=== PATIENT | male | born 1960 | race Caucasian/White ===

== ENCOUNTER 2018-01-15 09:55 | Day surgery (SDC) | payer OTHER ==
[~2018-01-15] VITALS: Ht 177.8 cm; Wt 77.1 kg
[2018-01-15] MEDS ORDERED: ONDANSETRON HCL 4 MG/2 ML VIAL IVP PRN (11:30)
[2018-01-15] MEDS ORDERED: fentaNYL CITRATE/PF 100 MCG/2 ML AMP IVP PRN ×2 (11:30)
[2018-01-15] MEDS ORDERED: LIDOCAINE/EPI 1% 1:100000 20 ML VIAL INJ ONE ×2 (12:33→13:55)
[2018-01-15] MEDS ORDERED: EPINEPHrine 1 MG/ML AMP INFIL ONE (12:33)
[2018-01-15] MEDS ORDERED: OXYMETAZOLINE HCL 0.05% NASAL SPRAY NS ONE ×2 (12:33→13:55)
[2018-01-15] MEDS ORDERED: ONDANSETRON HCL 4 MG/2 ML VIAL IVP ONE (13:55)
[2018-01-15] MEDS ORDERED: LR 1,000 ML IV.SOLN IV ONE (13:55)
[2018-01-15] MEDS ORDERED: NS 1000 ML IV.SOLN IV ONE (13:55)
[2018-01-15] MEDS ORDERED: GLYCOPYRROLATE 0.2 MG/ML VIAL IJ ONE (13:55)
[2018-01-15] MEDS ORDERED: SEVOFLURANE 15 MIN GAS INH ONE (13:55)
[2018-01-15] MEDS ORDERED: MIDAZOLAM HCL 5 MG/5 ML VIAL IVP ONE (13:55)
[2018-01-15] MEDS ORDERED: NEOSTIGMINE METHYLSULFATE 1 MG/ML, 10 ML VIAL IVP ONE (13:55)
[2018-01-15] MEDS ORDERED: fentaNYL CITRATE/PF 100 MCG/2 ML AMP IVP ONE (13:55)
[2018-01-15] MEDS ORDERED: PROPOFOL 200MG/ 20ML VIAL (DIPRIVAN) IV ONE (13:55)
[2018-01-15] MEDS ORDERED: EPINEPHrine 1 MG/ML AMP IV ONE (13:55)
[2018-01-15 14:40] VITALS: BP_SYST 139
== END 2018-01-15 15:40 | disposition home or self-care (01) ==
LOC: SDS 09:55 → SMU 09:55 → SDS 15:40
PROVIDERS: ATTEND Otolaryngology
DX: J32.9 Chronic sinusitis, unspecified (principal); K21.9 Gastro-esophageal reflux disease without esophagitis; E78.5 Hyperlipidemia, unspecified
CPT/HCPCS: 88305; 88311; J0171; J2250; J2405; J2704; J2710; J3010; J3490; J7030; J7120